=== PATIENT | male | born 1995 | race Caucasian/White ===

== ENCOUNTER 2018-08-05 19:05 | Emergency (ER) | payer MEDICAID ==
[2018-08-05] MEDS ORDERED: Ondansetron 4 MG/2 ML SDV IVPUSH ONE (19:12)
[2018-08-05] MEDS ORDERED: Sodium Chloride 0.9% 1,000 ML IV ONE (19:12)
--- NOTE | 2018-08-05 19:19 | EDM.PDOC ---
ED HPI GENERAL MEDICAL PROBLEM - General Stated Complaint: FOOD POISENING Time Seen by Provider: 08/05/18 19:11 Source of Information: Reports: Patient, Family History Limitations: Reports: No Limitations - History of Present Illness INITIAL COMMENTS - FREE TEXT/NARRATIVE: 23 y.o.w.m came with his SO to the ed due to N/V and looses stool, which started yesterday. He vomited multiple times [employer]> No Dizziness, no lightheadedness, no C/P, no trauma or any other acute medical issues. BP 137/76 Pulse 93 Temp 36.8 RR 18 Pulse ox 99% on RA Onset Date: 08/04/18 Onset Time: 10:00 Duration: Hour(s):, Day(s):, Constant, Intermittent Location: Reports: Abdomen Quality: Reports: Burning Severity: Mild Improves with: Reports: None Worsens with: Reports: Other (bad food) Context: Reports: Sick Contact (?) Associated Symptoms: Reports: Nausea/Vomiting, Other (loose stool) Generalized Pain Score (Numeric/FACES): 5 - Related Data Allergies Allergy/AdvReac Type Severity Reaction Status Date / Time No Known Allergies Allergy Verified 08/05/18 19:42 Home Meds: Home Meds Ondansetron [Zofran ODT] 4 mg PO Q6H PRN #10 tab.dis 08/05/18 [Rx] ED ROS GENERAL - Review of Systems Review Of Systems: See Below Constitutional: Reports: No Symptoms HEENT: Reports: No Symptoms Respiratory: Reports: No Symptoms Cardiovascular: Reports: No Symptoms Endocrine: Reports: No Symptoms GI/Abdominal: Reports: Abdominal Pain (epigastric) : Reports: No Symptoms Musculoskeletal: Reports: No Symptoms Skin: Reports: No Symptoms Neurological: Reports: No Symptoms Psychiatric: Reports: No Symptoms Hematologic/Lymphatic: Reports: No Symptoms Immunologic: Reports: No Symptoms ED EXAM, GI/ABD - Physical Exam Exam: See Below Exam Limited By: No Limitations General Appearance: Alert, WD/WN, Mild Distress Eyes: Bilateral: Normal Appearance Ears: Normal External Exam Nose: Normal Inspection Throat/Mouth: Normal Inspection, Normal Lips, Normal Teeth, Normal Gums, Normal Voice, No Airway Compromise Head: Atraumatic, Normocephalic Neck: Normal Inspection, Supple, Non-Tender Respiratory/Chest: No Respiratory Distress, Lungs Clear, Normal Breath Sounds, No Accessory Muscle Use, Chest Non-Tender Cardiovascular: Normal Peripheral Pulses, Regular Rate, Rhythm, No Edema, No Gallop, No JVD, No Murmur, No Rub GI/Abdominal Exam: Normal Bowel Sounds, Non-Tender, No Organomegaly, Tender ( epigastric minimal) (Male) Exam: No Hernia, Deferred Rectal (Males) Exam: Deferred Back Exam: Normal Inspection, Full Range of Motion Extremities: Normal Inspection, Normal Range of Motion, Non-Tender, No Pedal Edema, Normal Capillary Refill Neurological: Alert, Oriented, CN II-XII Intact, Normal Cognition, Normal Gait Psychiatric: Normal Affect, Normal Mood Skin Exam: Warm, Dry, Intact, Normal Color, No Rash Lymphatic: No Adenopathy Course - Vital Signs Text/Narrative:: 23 y.o.w.m came with his SO to the ed due to N/V and looses stool, which started yesterday. He vomited multiple times [employer] SAL[employer]> No Dizziness, no lightheadedness, no C/P, no trauma or any other acute medical issues. BP 137/76 Pulse 93 Temp 36.8 RR 18 Pulse ox 99% on RA PE: WNWD W M with nausea and minor epigastric discomfort Labs: CBC nl except WBC was 14,6 and HGB was 16.6 BMP was nl except BUN was 21. UA: Pt refused to give urine Impression: Gastritis, dehydration Tx: ALDAIR Yanes Reexam: Improved Plan: D/C with instructions Last Recorded V/S: Last Vital Signs Temp 37.3 C 08/05/18 19:28 Pulse 89 08/05/18 20:47 Resp 18 08/05/18 20:47 BP 145/90 H 08/05/18 20:47 Pulse Ox 100 08/05/18 20:47 - Orders/Labs/Meds Orders: Active Orders 24 hr Category Date Time Status UA W/MICROSCOPIC [URIN] Stat Lab 08/05/18 19:12 Ordered Labs: Laboratory Tests 08/05/18 08/05/18 Range/Units 19:18 19:18 WBC 14.3 H (4.5-12.0) X10-3/uL RBC 5.35 (4.30-5.75) x10(6)uL Hgb 16.4 H (11.5-15.5) g/dL Hct 47.1 (30.0-51.3) % MCV 88.1 (80-96) fL MCH 30.7 (27.7-33.6) pg MCHC 34.9 (32.2-35.4) g/dL RDW 12.9 (11.5-15.5) % Plt Count 239 (125-369) X10(3)uL MPV 9.6 (7.4-10.4) fL Add Manual Diff Yes Neutrophils % (Manual) 92 H (46-82) % Band Neutrophils % 1 (0-6) % Lymphocytes % (Manual) 4 L (13-37) % Monocytes % (Manual) 2 L (4-12) % Eosinophils % (Manual) 1 (0-5) % Sodium 139 (135-145) mmol/L Potassium 4.4 (3.5-5.3) mmol/L Chloride 103 (100-110) mmol/L Carbon Dioxide 28 (21-32) mmol/L BUN 21 H (7-18) mg/dL Creatinine 1.2 (0.70-1.30) mg/dL Est Cr Clr Drug Dosing TNP Estimated GFR (MDRD) > 60 (>60) BUN/Creatinine Ratio 17.5 (9-20) Glucose 103 (80-116) mg/dL Calcium 9.1 (8.6-10.2) mg/dL Meds: Medications Discontinued Medications Generic Name Dose Route Start Last Admin Trade Name Freq PRN Reason Stop Dose Admin Sodium Chloride 1,000 mls @ 999 mls/hr 08/05/18 19:12 08/05/18 19:50 Normal Saline IV 08/05/18 20:12 999 mls/hr .BOLUS ONE Administration Ondansetron HCl 8 mg 08/05/18 19:12 08/05/18 19:50 Zofran IVPUSH 08/05/18 19:13 8 mg ONETIME ONE Administration Departure - Departure Time of Disposition: 20:52 Disposition: Home, Self-Care 01 Condition: Good Clinical Impression: Gastritis, Dehydration - Discharge Information Prescriptions: Ondansetron [Zofran ODT] 4 mg PO Q6H PRN #10 tab.dis PRN Reason: Nausea Instructions: Ondansetron injection, Viral Gastroenteritis, Adult, [id number] Referrals: PCP,None [Primary Care Provider] - Forms: ED Department Discharge, ED Return to Work/School Form Additional Instructions: Please advance diet as tolerated, Zofran as recommended, follow up as needed, come back if your symptoms get worse acutely - My Orders Last 24 Hours: My Active Orders 08/05/18 19:12 UA W/MICROSCOPIC [URIN] Stat - Assessment/Plan Last 24 Hours: My Active Orders 08/05/18 19:12 UA W/MICROSCOPIC [URIN] Stat
== END 2018-08-05 21:20 | disposition home or self-care (01) ==
LOC: FB.ED 19:05
DX: K29.70 Gastritis, unspecified, without bleeding (principal)
CPT/HCPCS: 36415; 80048; 85025; 96361; 96374; 99283; J2405; J7030